=== PATIENT | female | born 1985 ===

== ENCOUNTER 2018-09-23 19:16 | Emergency (ER) | payer OTHER ==
[2018-09-23 19:35] VITALS: BP 118/83; PULSE 98; RESP 16; TEMP 99.4; O2SAT 100
--- NOTE | 2018-09-23 19:55 | C.PDOC ---
History Of Present Illness 33 y/o female with hx thyroid problems, recently checked and doesn't need medication for it, c/o dry cough x 3 weeks and feels sob and has pleuritic cp at times. no fevers. no recent travel, not on ocp. denies leg swelling. no recent surgery or prolonged immobilization. Time Seen by Provider: 09/23/18 19:32 Chief Complaint (Nursing): Cough, Cold, Congestion History Per: Patient History/Exam Limitations: no limitations Onset/Duration Of Symptoms: Days (21) Current Symptoms Are (Timing): Still Present Location Of Pain: Other (pleuritic chest pain) Sick Contacts (Context): None Associated Symptoms: Cough. denies: Fever, Chills, Sore Throat, Sputum Ear Symptoms: Bilateral: None Severity: Mild Additional History Per: Family Past Medical History Reviewed: Historical Data, Nursing Documentation, Vital Signs Vital Signs: Last Vital Signs Temp 99.4 F 09/23/18 19:22 Pulse 98 H 09/23/18 19:22 Resp 16 09/23/18 19:22 BP 118/83 09/23/18 19:22 Pulse Ox 100 09/23/18 19:22 Primary Care Provider: FAMILY PROVIDER,NO - Medical History PMH: Hypothyroidism Family History: States: Unknown Family Hx - Social History Hx Tobacco Use: No Hx Alcohol Use: Yes Hx Substance Use: No - Immunization History Hx Influenza Vaccination: No Hx Pneumococcal Vaccination: No Review Of Systems Constitutional: Negative for: Fever, Chills ENT: Negative for: Ear Pain Cardiovascular: Positive for: Chest Pain (with cough) Respiratory: Positive for: Cough, Shortness of Breath, Pleuritic Pain. Negative for: Sputum, Wheezing Gastrointestinal: Negative for: Abdominal Pain Neurological: Negative for: Weakness, Numbness Physical Exam - Physical Exam Appears: Non-toxic, No Acute Distress, Other (occasional dry cough) Skin: Warm, Dry Head: Atraumatic, Normacephalic Eye(s): bilateral: Normal Inspection Ear(s): Bilateral: Normal Nose: No Discharge Oral Mucosa: Moist Throat: No Erythema, No Exudate Neck: Supple Chest: Symmetrical, No Deformity, Tenderness (mild bilateral anterior chest wall tenderness) Cardiovascular: Rhythm Regular, No Murmur Respiratory: No Decreased Breath Sounds, No Accessory Muscle Use, No Rales, No Rhonchi, No Wheezing Gastrointestinal/Abdominal: Bowel Sounds, Soft, No Tenderness Extremity: Normal ROM, No Pedal Edema, No Calf Tenderness Neurological/Psych: Oriented x3, Normal Speech, Normal Cognition, Normal Motor, Normal Sensation ED Course And Treatment O2 Sat by Pulse Oximetry: 100 Medical Decision Making Medical Decision Making: cough with pleuritic cp x 3 weeks, no fever. cxr,. saline neb tx. tyleol, re- eval 2039 pt feels better after Tylenol and saline nebulizer. wet read cxr neg. d/c home with tessalon, saline for machine at home, albuterol. Disposition Counseled Patient/Family Regarding: Studies Performed, Diagnosis, Need For Followup, Rx Given - Disposition Referrals: [facility] [Outside] [facility] [Outside] Disposition: HOME/ ROUTINE Disposition Time: 20:43 Condition: GOOD Additional Instructions: Use ciara solucin salina de 2 a 3 ml en ciara mquina nebulizadora o 2 inhaladores de inhalador cuando tosa mucho. Tylenol para el dolor de la tos. Tessalon perles genie prescrita para la tos. Seguimiento en clnica en ciara semana si no mejora. Use saline 2-3 ml in nebulizer machine or 2 puffs of inhaler when coughing a lot. Tylenol for pain from coughing. Tessalon perles as prescrbied for cough. Follow up in clinic in a week if not getting better. Prescriptions: Acetaminophen [Tylenol 325mg tab] 650 mg PO Q6 #30 tab Albuterol HFA [Ventolin HFA 90 mcg/actuation (8 g)] 2 puff IH Q6 #1 inhaler Benzonatate [Tessalon Perles] 100 mg PO TID #12 sgl Instructions: Acute Bronchitis, Adult (DC) Forms: Gen Discharge Inst Yakut, [employer] (Yakut) Print Language: KAZAKH - Clinical Impression Clinical Impression: Bronchitis
[2018-09-23] MEDS ORDERED: Sodium Chloride 0.9% Inh Soln (3mL) UD INH ONE (20:07)
--- NOTE | 2018-09-24 09:32 | RAD ---
Chest x-ray single frontal view HISTORY: Cough. COMPARISON: None available. FINDINGS: No focal infiltrate or effusion. Minimal right apical pleural thickening. Bibasilar breast and nipple shadows. Heart size within normal limits. IMPRESSION: No focal infiltrate or effusion.
== END 2018-09-23 20:52 | disposition home or self-care (01) ==
LOC: C.ER 19:16
DX: J40 Bronchitis, not specified as acute or chronic (principal)